=== PATIENT | female | born 1940 | race Caucasian/White ===

== ENCOUNTER 2017-04-24 07:58 | Outpatient (CLI) | payer MEDICARE, BC, OTHER | END 2017-04-24 07:59 | disposition home or self-care (01) | LOC: BICMAMMO 07:58 | PROVIDERS: ATTEND Internal Medicine | DX: Z12.31 Encounter for screening mammogram for malignant neoplasm of breast (principal) | CPT/HCPCS: 77063; G0202; 77067 ==

== ENCOUNTER 2018-04-30 08:43 | Outpatient (CLI) | payer MEDICARE, BC, OTHER ==
--- NOTE | 2018-04-30 11:41 | BD ---
BONE DENSITOMETRY USING DEXA: HISTORY: Postmenopausal screening for osteoporosis. LUMBAR SPINE BMD (g/cm2) T-SCORE Z-SCORE L1 1.179 1.7 3.9 L2 1.388 3.3 5.7 L3 1.304 2.0 4.6 L4 1.273 1.9 4.6 TOTAL 1.286 2.2 4.7 NECK 0.664 -1.7 0.5 TOTAL 0.951 0.1 1.9 The 10-year fracture risk for a major osteoporotic fracture is 12% and for a hip fracture 2.6%. IMPRESSION: Osteopenia. POS: [facility]
== END 2018-04-30 08:44 | disposition home or self-care (01) ==
LOC: BICMAMMO 08:43
PROVIDERS: ATTEND Internal Medicine
DX: Z12.31 Encounter for screening mammogram for malignant neoplasm of breast (principal); M85.89 Other specified disorders of bone density and structure, multiple sites; R92.1 Mammographic calcification found on diagnostic imaging of breast; Z80.3 Family history of malignant neoplasm of breast
CPT/HCPCS: 77063; 77067; 77080

== ENCOUNTER 2018-07-16 08:25 | Outpatient (CLI) | payer MEDICARE, BC, OTHER ==
[2018-07-16] MEDS ORDERED: Iopamidol 370 76% 100 ML VIAL ONE (09:00)
[2018-07-16 09:26] LABS: Estimated GFR-MDRD - POC Greater than 90
--- NOTE | 2018-07-16 10:45 | CT ---
CT BRAIN WITH AND WITHOUT IV CONTRAST: Date: 07/16/18 HISTORY: 77-year-old female with headache, stroke, and aneurysm. Right arm weakness. FINDINGS: There are postop changes of left-sided craniotomy. There is encephalomalacia in the left MCA territor y, likely due to old insult, with mild ex vacuo dilatation of the left lateral ventricle. Postop ward ges of aneurysm repair are seen in the left middle cranial fossa. No evidence of acute infarct, hemor rhage, midline shift, or abnormal extra-axial fluid collections are seen. No mass is identified. No a bnormal postcontrast enhancement is noted. The basilar cisterns are patent. No acute osseous abnormal ities are seen. The visualized paranasal sinuses and mastoid air cells are well aerated. IMPRESSION: No CT evidence of acute intracranial process or mass. POS: [facility]
== END 2018-07-16 08:26 | disposition home or self-care (01) ==
LOC: SCSCT 08:25
PROVIDERS: ATTEND Internal Medicine
DX: R51 Headache (principal); R41.0 Disorientation, unspecified; Z86.73 Personal history of transient ischemic attack (TIA), and cerebral infarction without residual deficits; Z86.79 Personal history of other diseases of the circulatory system
CPT/HCPCS: 70470; 82565; Q9967

== ENCOUNTER 2018-07-27 11:03 | Outpatient (CLI) | payer MEDICARE, BC, OTHER ==
--- NOTE | 2018-07-27 13:35 | RAD ---
LUMBAR SPINE THREE VIEWS: HISTORY: Intervertebral disk degeneration. Low back pain. Symptoms x2 weeks. COMPARISON: None. FINDINGS: There is levorotatory scoliosis of the lumbar spine. Five lumbar type vertebral bodies. Lumbar spin e vertebral body height is maintained. No fracture. Multilevel degenerative disk disease with sever e loss of disk space height and osteophyte formation. In the lateral weightbearing position, there i s anterolisthesis (7.6 mm) of L5 upon S1. IMPRESSION: Chronic degenerative change of the lumbar spine is suspected. POS: [facility]
== END 2018-07-27 11:04 | disposition home or self-care (01) ==
LOC: BICRAD 11:03
PROVIDERS: ATTEND Internal Medicine
DX: M54.5 Low back pain (principal); M51.36 Other intervertebral disc degeneration, lumbar region
CPT/HCPCS: 36415; 72100; 83880

== ENCOUNTER 2018-08-27 15:19 | Outpatient (CLI) | payer MEDICARE, BC, OTHER ==
--- NOTE | 2018-08-27 16:34 | RAD ---
SACROILIAC JOINTS 3 VIEWS: Date: 08/27/18 INDICATION: Low back pain. COMPARISON: None. FINDINGS: There is mild degenerative change of both SI joints. Sacral ala are incontinuity. No acute fracture i s evident. IMPRESSION: Mild degenerative changes of both SI joints. POS: [facility]
--- NOTE | 2018-08-27 16:52 | RAD ---
LUMBAR SPINE THREE VIEWS: History: Back pain. Comparison: None. FINDINGS: Moderate to severe degenerative changes of the lumbar spine noted. There is loss of disc space at all levels. Vertebral body height is preserved. There is a scoliotic curvature with convexity to the lef t mid-lumbar spine, measured at 25 degrees. There is mild lateral compression of the L3 vertebra due to this scoliotic curvature. Prominent osteophytes are seen from all lumbar vertebrae. There is a mil d anterolisthesis of L5-S1. Posterior alignment is otherwise normally maintained on the lateral view. Facet hypertrophy is noted. IMPRESSION: Moderately severe degenerative hypertrophic changes of the lumbar spine. There is a scoliotic curvatu re to the left. Mild anterolisthesis of L5-S1. POS: [facility]
== END 2018-08-27 15:20 | disposition home or self-care (01) ==
LOC: BICRAD 15:19
PROVIDERS: ATTEND Internal Medicine
DX: M54.5 Low back pain (principal); M25.551 Pain in right hip; M25.552 Pain in left hip; M47.816 Spondylosis without myelopathy or radiculopathy, lumbar region; M43.17 Spondylolisthesis, lumbosacral region; M41.9 Scoliosis, unspecified; M53.3 Sacrococcygeal disorders, not elsewhere classified
CPT/HCPCS: 36415; 72100; 72202; 82565

== ENCOUNTER 2018-08-31 12:54 | Outpatient (CLI) | payer MEDICARE, BC, OTHER ==
--- NOTE | 2018-08-31 13:54 | CT ---
CT OF THE ABDOMEN AND PELVIS WITH IV CONTRAST INDICATION: Low back pain COMPARISON: CT the abdomen and pelvis dated February 03, [address] of the abdomen dated 2010 FINDINGS: ABDOMEN: Lung bases: Clear Liver: The small hypodense lesion involving the medial left hepatic lobe has intervally grown. This l esion now measures 11 mm and demonstrates an area of peripheral nodular enhancement suspicious for a hemangioma. Gallbladder: Not visualized, presumed to be surgically absent. Pancreas: Normal. Adrenal glands: Mild hypertrophy of the left adrenal gland has been stable since 2010. Right adrenal glands normal appearing. Spleen: Normal. Kidneys: Small renal hypodensities bilaterally persists. There is a 1.1 cm hypodense involving superi or pole right kidney that has intervally grown. This does not have postcontrast Hounsfield characteristics of a simple cyst. Retroperitoneum of the upper abdomen: No lymphadenopathy or free fluid is identified. Pelvis: Small and large bowel: There are scattered colonic diverticula without evidence of active diverticuli tis. The small bowel is of normal appearance. The appendix is not definitely demonstrated. Reproductive structures: The uterus is not visualized and presumably surgically absent. The adnexa ar e not visualized and presumed to be surgically absent. Free fluid in pelvis: No free fluid is evident. Lymphadenopathy pelvis: No lymphadenopathy is evident. Vascular structures: There are moderate to severe calcifications involving the abdominal pelvic vascu lature. Osseous structures: There is worsening degenerative levoscoliosis of the lumbar spine. No acute fract ure or subluxation is evident. There is diffuse osteopenia. There is scattered degenerative and osteoarthritic changes. IMPRESSION: 1. Worsening degenerative levoscoliosis of the lumbar spine with vacuum disc phenomenon at L4-5 and L 5-S1. 2. Renal hypodensities, difficult to characterize due to their size. The largest measures 1.1 cm with in the superior pole right kidney and cannot be further characterize on the current examination. This lesion may reflect a slightly proteinaceous cyst or complex cystic lesion of the right kidney. F ollow-up renal ultrasound is recommended. 3. Enlarging hypodensity in the medial left hepatic lobe with some suggestion of peripheral nodular d iscontinuous enhancement. This lesion has been slowly growing since 2010 and is suspicious for small hemangioma. 4. Colonic diverticulosis 5. Nonvisualization appendix and gallbladder. Presumably surgically absent. 6. Hysterectomy and bilateral oophorectomy
[2018-08-31] MEDS ORDERED: Iopamidol 370 76% 100 ML VIAL ONE (15:02)
== END 2018-08-31 12:55 | disposition home or self-care (01) ==
LOC: CT 12:54
PROVIDERS: ATTEND Internal Medicine
DX: M51.36 Other intervertebral disc degeneration, lumbar region (principal); M41.9 Scoliosis, unspecified; K57.30 Diverticulosis of large intestine without perforation or abscess without bleeding; Z90.710 Acquired absence of both cervix and uterus; Z90.722 Acquired absence of ovaries, bilateral
CPT/HCPCS: 74177; Q9967

== ENCOUNTER 2018-09-09 13:55 | Outpatient (CLI) | payer MEDICARE, BC, OTHER ==
--- NOTE | 2018-09-09 15:14 | ULT ---
Exam: Bilateral renal ultrasound complete: HISTORY: Follow-up CT right kidney COMPARISON: 08/31/2018 FINDINGS: Right kidney: 11.3 x 5.2 x 4.5 cm Left kidney: 10.6 x 5.5 x 6.2 cm No renal hydronephrosis. No evidence for abnormal perinephric process. 1.0 x 1.2 cm thinly septated cyst in the right kidney corresponding to the CT finding. Unremarkable appearing bladder. Multiple bilateral echogenic foci are noted in both kidneys, nonspecific, I tend to think these are n ot renal calculi given the fact that there were no significant renal calculi seen on the prior CT. IMPRESSION: Small thinly septated right renal cyst. No hydronephrosis. Nonspecific multiple small bilateral renal echogenic foci.
== END 2018-09-09 13:56 | disposition home or self-care (01) ==
LOC: SCSULT 13:55
PROVIDERS: ATTEND Internal Medicine
DX: N28.1 Cyst of kidney, acquired (principal)
CPT/HCPCS: 76770

== ENCOUNTER 2018-10-07 06:56 | Day surgery (SDC) | payer MEDICARE, BC, OTHER ==
[2018-10-06 10:49] VITALS: BMI 31.1
[2018-10-07] MEDS ORDERED: Lorazepam 1 MG TAB ONE (07:53)
[2018-10-07 07:58] VITALS: BP 185/88; TEMP 98
--- NOTE | 2018-10-07 09:11 | RAD ---
Exam: Lumbar myelogram HISTORY: lumbar spinal stenosis Exposure 0.5 minutes, 335.2 mcg/sq m FINDINGS: Initial two-view sole painter lumbar spine radiograph demonstrates a left worse scoliotic curvatur e of the lumbar spine. 5 lumbar type bodies. Multilevel degenerative disc disease with significant loss of disc space height, osteophyte formation. Vacuum disc phenomenon at L4-L5 Atherosclerosis of the aorta is noted Successful lumbar puncture. A total of 10 cc of Isovue-M 200 contrast was administered. Contrast was administered at the L3-L4 level TECHNIQUE: Consent obtained to perform a lumbar puncture for lumbar myelogram. Patient's back was katherine luated. The L3-L4 level was deemed appropriate. Skin was prepped and draped sterile fashion. 1% lidocaine, buffered with sodium bicarbonate was used for local anesthesia. Under FLUOROSCOPIC guidanc e, 22-gauge spinal needle was advanced into the CSF space. There is prompt flow of CSF to the hub of the needle. Via a short tubing catheter, a total of 10 cc of Isovue-M 200 contrast was administere d. Patient tolerated the procedure well. No immediate IMPRESSION: Successful lumbar.
--- NOTE | 2018-10-07 09:43 | CT ---
Exam: POST MYELOGRAM CT LUMBAR SPINE: HISTORY: Lumbar stenosis. COMPARISON: None. FINDINGS: Visualized solid organs are grossly unremarkable. There is some nodularity with the left adrenal glan d. Attenuation coefficient is negative for Hounsfield units suggesting benign adenoma. Nonobstructing 2 mm calcification in the right renal pelvis. Bilaterally no obstructive uropathy. Ath erosclerosis of a nonaneurysmal aorta. Symmetric attenuation of the psoas muscles. Indeterminate hypodensity in the left hepatic lobe measuring approximately 1 cm. Nonspecific calcification in the pancreas. There are 5 lumbar type vertebral bodies. Vertebral body height is maintained. No fracture. Leftward scoliosis of the lumbar spine, apex at the L3-L4 level. Vacuum disc phenomenon at T11-T12, T12-L1, L1-L2, and L4-L5. 5.3 mm of anterolisthesis of L5 upon S1. Bilateral facet hypertrophy is noted at L4-L5 and L5-S1. Conus medullaris terminates at the upper aspect of L1. T11-T12: Generalized disc bulge with mild central canal stenosis. Right neural foramen is patent. Mo derate left foraminal narrowing. T12-L1: Vacuum disc phenomenon. Generalized disc bulge without significant central canal stenosis or neural foraminal narrowing. L1-L2: Vacuum disc phenomenon. Severe loss of disc space height. Narrowing of the left subarticular z one secondary to disc material. Mass effect without obscuration of the traversing left L2 and possibly L3 nerve root. Overall mild stenosis of the thecal sac. Right neural foramen is patent. Mode rate to severe left foraminal narrowing. L2-L3: Vacuum disc phenomenon with severe loss of disc space height. Mild central canal stenosis. Mod erate to severe right and left neural foraminal narrowing. L3-L4: Severe loss of disc space height. No high-grade central canal stenosis. Moderate right and mil d left foraminal narrowing. L4-L5: Vacuum disc phenomenon. Broad-based disc bulge, ligament flavum thickening and facet hypertrop hy cause severe central canal stenosis. There is a posterior disc protrusion, measuring 7 mm in AP dimension as demonstrated on the sagittal reformatted images. Moderate right and moderate to severe l eft neural foraminal narrowing. L5-S1: Generalized disc bulge with mild central canal stenosis. Moderate bilateral neural foraminal n arrowing. There is left greater than right facet hypertrophy. IMPRESSION: 1. Multilevel degenerative changes of lumbar spine as described above. 2. Severe central canal stenosis at L4-L5 due to central disc protrusion. 3. Varying degrees of neural foraminal narrowing as described above. Transcribed Date/Time: 10/07/2018 10:07 AM
[2018-10-07] MEDS ORDERED: Iopamidol-M 200 41% 20 ML VIAL ONE (11:37)
== END 2018-10-07 10:20 | disposition home or self-care (01) ==
LOC: RAD 06:56
PROVIDERS: ATTEND Neurological Surgery
PROC: B01B1ZZ Fluoroscopy of Spinal Cord using Low Osmolar Contrast (ICD-10-PCS; principal; 2018-10-07)
DX: M51.26 Other intervertebral disc displacement, lumbar region (principal); M48.061 Spinal stenosis, lumbar region without neurogenic claudication; M51.36 Other intervertebral disc degeneration, lumbar region; I70.0 Atherosclerosis of aorta; I10 Essential (primary) hypertension; M19.90 Unspecified osteoarthritis, unspecified site; Z86.73 Personal history of transient ischemic attack (TIA), and cerebral infarction without residual deficits; Z98.890 Other specified postprocedural states; Z91.041 Radiographic dye allergy status; Z79.52 Long term (current) use of systemic steroids; Z79.82 Long term (current) use of aspirin; Z79.899 Other long term (current) drug therapy
CPT/HCPCS: 62304; 72132

== ENCOUNTER 2019-02-15 08:54 | Observation (INO) | payer MEDICARE, BC, OTHER ==
[2019-02-12 14:19] VITALS: BMI 31.1
[2019-02-15 09:51] LABS: Hemoglobin 14.4 g/dL (12.0-16.0); Mean Corpuscular HGB CONC 34.3 g/dL (32.0-36.0); Mean Corpuscular Hemoglobin 33.3 pg (27.0-31.0); Mean Platelet Volume 8.1 fL (7.4-10.4); Platelet Count 283 thou/uL (130-400); RBC Distribution Width 12.2 % (11.5-14.5); Red Blood Cell (RBC) Count 4.32 mill/uL (4.20-5.40); White Blood Cell (WBC) Count 9.4 thou/uL (4.8-10.8)
[2019-02-15 10:11] LABS: Anion Gap 15 mmol/L (10-20); BUN (Urea Nitrogen) 20 mg/dL (9.8-20.1); Calc. Creatinine Clearance 78 mL/min (70-130); Calcium 9.8 mg/dL (7.8-10.44); Carbon Dioxide 24 mmol/L (23-31); Chloride 103 mmol/L (98-107); Estimated GFR-MDRD 80; Glucose 113 mg/dL (83-110); Potassium 3.8 mmol/L (3.5-5.1); Sodium 138 mmol/L (136-145)
[2019-02-15] MEDS ORDERED: Scopolamine 1.5 mg/72 hour Patch ONE (10:38)
[2019-02-15] MEDS ORDERED: Fentanyl 100 MCG/2 ML VIAL ONE ×2 (11:42→13:47)
[2019-02-15] MEDS ORDERED: Ondansetron PF 4 MG/2 ML Vial ONE (12:55)
[2019-02-15] MEDS ORDERED: Glycopyrrolate 0.2 MG/ML 5 ML SYRINGE ONE (12:55)
[2019-02-15] MEDS ORDERED: Ketorolac Tromethamine 30 MG/ML VIAL ONE (12:55)
[2019-02-15] MEDS ORDERED: Esmolol 100 MG/10 ML VIAL ONE (12:55)
[2019-02-15] MEDS ORDERED: PROPOFOL 200 MG/20 ML VIAL ONE (12:55)
[2019-02-15] MEDS ORDERED: Rocuronium Bromide 10 MG/ML (10ML VIAL) ONE (12:55)
[2019-02-15] MEDS ORDERED: PHENYLEPHRINE-NS 100 MCG/ML 10 ML SYRINGE ONE (12:55)
[2019-02-15] MEDS ORDERED: Dexamethasone 20 MG/5 ML VIAL ONE (12:55)
[2019-02-15] MEDS ORDERED: Promethazine HCl 25 MG/ML VIAL SLOW IVP PRN (13:44)
[2019-02-15] MEDS ORDERED: Ondansetron HCl/PF 4 MG/2 ML Vial IVP PRN (13:44)
[2019-02-15] MEDS ORDERED: Promethazine HCl 25 MG/ML VIAL IM PRN ×2 (13:44→14:31)
[2019-02-15] MEDS ORDERED: Acetaminophen/Codeine 30-300mg Tablet PO PRN ×2 (14:31)
[2019-02-15] MEDS ORDERED: traMADol HCl 50 MG TAB PO PRN ×3 (14:31→16:25)
[2019-02-15] MEDS ORDERED: Acetaminophen 650 MG Suppository PR PRN (14:31)
[2019-02-15] MEDS ORDERED: Milk Of Magnesia 30 ML UDCUP PO PRN (14:31)
[2019-02-15] MEDS ORDERED: Promethazine HCl 12.5 MG SUPP PR PRN (14:31)
[2019-02-15] MEDS ORDERED: diphenhydrAMINE 50 MG/ML VIAL IVP PRN (14:31)
[2019-02-15] MEDS ORDERED: Promethazine 25 MG TAB PO PRN (14:31)
[2019-02-15] MEDS ORDERED: diphenhydrAMINE 25 MG CAP PO PRN (14:31)
[2019-02-15] MEDS ORDERED: Morphine 4 MG/ML VIAL SLOW IVP PRN (14:31)
[2019-02-15] MEDS ORDERED: Mag-Al 1200 mg/1200 mg/30 ML UDCUP PO PRN (14:31)
[2019-02-15] MEDS ORDERED: tiZANidine HCl 4 MG TAB PO PRN (14:31)
[2019-02-15] MEDS ORDERED: Ondansetron PF 4 MG/2 ML Vial IVP PRN (14:33)
[2019-02-15] MEDS ORDERED: Morphine 2 MG/ML SYRINGE SLOW IVP PRN (15:30)
[2019-02-15] MEDS ORDERED: CEFAZOLIN 2 GM in Premix Bag 1 BAG IVPB SCH (18:00)
[2019-02-15] MEDS: Sodium Chloride 0.9% 1,000 ML IV SCH (18:01)
--- NOTE | 2019-02-15 19:08 | OP ---
DATE OF PROCEDURE: 02/15/2019 [employer]: Med Lancaster MD PROCEDURE PERFORMED: L4-L5 laminectomy. DESCRIPTION OF PROCEDURE: The patient was brought to the operating room and intubated. She was rolled in a prone position on gel-filled chest rolls. An incision was made exposing L4-L5 and level was confirmed by x-ray. We performed complete L5 and inferior L4 laminectomies and found the expected severe degenerative findings and degenerative scoliosis. A complete decompression at L4-L5 area was achieved. The wound was extensively irrigated. MAC hemostasis was secured. Vancomycin powder was applied, and the wound was closed in anatomic layers over drain. Job ID: [id number]
[2019-02-15] MEDS: Acetaminophen 325 MG TAB PO PRN (20:46)
[2019-02-15] MEDS: CEFAZOLIN 2 GM in Premix Bag 1 BAG IVPB SCH (20:46)
[2019-02-16] MEDS: CEFAZOLIN 2 GM in Premix Bag 1 BAG IVPB SCH (04:40)
[2019-02-16] MEDS: Sodium Chloride 0.9% 1,000 ML IV SCH ×2 (04:40→18:40)
--- NOTE | 2019-02-16 06:52 | PRG ---
DATE OF SERVICE: SUBJECTIVE: Patient is a 78-year-old female seen in our office for progressive neurogenic claudication and underwent L4-L5 laminectomy on 02/15/2019. She is postoperative day #1. Overnight, she reports her pain has been well-controlled with p.o. medication, she is tolerating a regular diet, and she is walking back and forth to the bathroom with assistance and with her walker. She is voiding appropriately. OBJECTIVE: On exam this morning, she is awake, alert, in no acute distress. She has free active range of motion of all extremities. Incision is clean, dry, and intact. PLAN: We will go ahead and get her CLEM drain out today since the output is trending down nicely and voided 70 mL out overnight. We will continue to mobilize with PT and I anticipate home tomorrow. Job ID: [id number] [facility]
[2019-02-16] MEDS: Docusate 100 MG CAP PO SCH (08:05)
--- NOTE | 2019-02-16 13:55 | CON ---
DATE OF CONSULTATION: 02/16/2019 CHIEF COMPLAINT: Management of medical comorbidities. HISTORY OF PRESENT ILLNESS: Ms. Diamond is a pleasant 78-year-old lady, who was seen at [facility] on February 16, 2019. She underwent lumbar laminectomy, L4-L5 yesterday. Hospitalist Service was consulted for management of medical comorbidities. The patient denies any chest pain or shortness of breath. She reports low back pain, but also reports that it is not worse than usual. She denies any fevers or chills. She has no other complaints. REVIEW OF SYSTEMS: All systems were reviewed and found to be negative except for the pertinent positives mentioned above. PAST MEDICAL HISTORY: Hypertension. PAST SURGICAL HISTORY: Cholecystectomy; hysterectomy; intracranial aneurysm, status post clipping; and left foot surgery. FAMILY HISTORY: The patient reports heart disease in her daughter. SOCIAL HISTORY: The patient denies tobacco use, alcohol use, or recreational drug use. ALLERGIES: IODINE AND IODINE-CONTAINING PRODUCTS. HOME MEDICATIONS: 1. Vitamin D3 2000 units every other day. 2. Aspirin 81 mg on Friday, Friday, and Friday. 3. Candesartan/hydrochlorothiazide 16/12.5 mg daily. 4. Diclofenac 75 mg at bedtime. 5. Diltiazem 120 mg at bedtime. 6. Docusate 100 mg daily. 7. Potassium chloride 20 mEq, Friday, Friday, and Friday. 8. Sun Chlorella every evening. 9. Tramadol p.r.n. 10. Vitamin E 400 units, Friday, Friday, and Friday. PHYSICAL EXAMINATION: GENERAL: On examination, Ms. Diamond is awake and alert, not in acute distress. VITAL SIGNS: Blood pressure is 130/79, pulse 78, respiratory rate 18, and oxygen saturation 94% on room air. She is afebrile. HEENT: Eyes; no scleral icterus, no conjunctival pallor. ENT; moist mucosal membranes. No oropharyngeal erythema or exudates. NECK: Supple, nontender. Trachea is midline. RESPIRATORY: Accessory muscles of breathing are not active. Chest wall movements are symmetric bilaterally. LUNGS: Clear to auscultation without wheeze, rhonchi, or crepitations. CARDIOVASCULAR: S1 and S2 are heard, regular. Peripheral pulses palpable. ABDOMEN: Soft, nontender. Bowel sounds are heard. NEUROLOGIC: Cranial nerves 2 through 12 are intact. MUSCULOSKELETAL: Power is 5/5 in all 4 extremities. SKIN: Incision site is clean. LYMPHATIC: No cervical lymphadenopathy. PSYCHIATRIC: Normal mood. Normal affect. The patient is oriented to person, place, and time. LABORATORY DATA: Ms. Diamond's labs and investigations were reviewed. Yesterday, she had an unremarkable CBC and unremarkable Chem-7. ASSESSMENT AND PLAN: Ms. Diamond is a pleasant 78-year-old lady, who was seen at [facility] on February 16, 2019 for management of medical comorbidities. Her problem list includes: 1. Hypertension: Ms. Diamond has already been started on Cardizem CD. I will resume her candesartan and hydrochlorothiazide as well. We will monitor vital signs and titrate antihypertensives as needed. 2. Lumbar spinal stenosis: Status post lumbar laminectomy, L4-L5 yesterday. 3. Pain management and deep venous thrombosis prophylaxis per Neurosurgery Service. LEVEL OF RISK: Low. LEVEL OF COMPLEXITY: Low. Job ID: [id number]
[2019-02-17] MEDS: Sodium Chloride 0.9% 1,000 ML IV SCH (03:54)
[2019-02-17] MEDS: Acetaminophen 325 MG TAB PO PRN (06:01)
[2019-02-17 07:42] VITALS: BP 98/55; TEMP 98
[2019-02-17] MEDS: Docusate 100 MG CAP PO SCH (08:07)
[2019-02-17] MEDS ORDERED: Potassium Chloride 20 MEQ TAB PO SCH ×2 (09:00)
[2019-02-17] MEDS ORDERED: Hydrochlorothiazide 25 MG TAB PO SCH (09:00)
[2019-02-17] MEDS ORDERED: Losartan 25 MG TAB PO SCH (09:00)
[2019-02-17] MEDS ORDERED: Vitamin E 400 UNITS CAP PO SCH ×2 (09:00)
[2019-02-17] MEDS ORDERED: Docusate 100 MG CAP PO SCH (09:00)
--- NOTE | 2019-02-17 14:59 | DIS ---
DATE OF ADMISSION: 02/15/2019 DATE OF DISCHARGE: 02/17/2019 HOSPITAL COURSE: The patient is a 78-year-old female, recently evaluated in our office for lumbar stenosis and progressive neurogenic claudication. She underwent L4-L5 laminectomy on 02/15/2019. Following the surgery, she was transitioned to the Med/Surg floor, where her pain has been well-controlled with p.o. medications, she is tolerating a regular diet, and she is voiding appropriately. She did have CLEM drain placed intraoperatively and this trended downward with regard to the output and was removed on postoperative day #1. She continued to mobilize appropriately with assistance of Physical Therapy. PHYSICAL EXAMINATION: GENERAL: On my exam this morning, she is awake, alert, in no acute distress. EXTREMITIES: She has free active range of motion of all extremities. Her incision is clean, dry, and intact. PLAN: We will plan to dismiss the patient to home. I have discussed home care precautions. She has been provided with scripts for Tylenol No. 3 and Zanaflex. We will follow up with the patient in 2 weeks, and we will arrange outpatient physical therapy at that time. Job ID: [id number]
--- NOTE | 2019-02-18 22:54 | EKG ---
Test Reason : PREOP Blood Pressure : / mmHG Vent. Rate : 077 BPM Atrial Rate : 077 BPM P-R Int : 166 ms QRS Dur : 106 ms QT Int : 426 ms P-R-T Axes : 078 -16 044 degrees QTc Int : 482 ms Sinus rhythm with occasional Premature ventricular complexes Inferior infarct (cited on or before 03-NOV-2011) Abnormal ECG When compared with ECG of 03-NOV-2011 09:13, Premature ventricular complexes are now Present Minimal criteria for Anterior infarct are no longer Present Confirmed by Silvino BROWN ([id number]) on 02/18/2019 10:53:47 PM Referred By: GALE Confirmed By:Silvino BROWN
== END 2019-02-17 11:25 | disposition home or self-care (01) ==
LOC: SDC 08:54 → SURG B 15:42
PROVIDERS: ADMIT Neurological Surgery; ATTEND Neurological Surgery
PROC: 01NB0ZZ Release Lumbar Nerve, Open Approach (ICD-10-PCS; principal; 2019-02-15)
DX: M48.062 Spinal stenosis, lumbar region with neurogenic claudication (principal); M41.56 Other secondary scoliosis, lumbar region; I10 Essential (primary) hypertension; Z79.82 Long term (current) use of aspirin; Z79.899 Other long term (current) drug therapy; Z91.041 Radiographic dye allergy status
CPT/HCPCS: 63047; 76000; 80048; 85027; 93005; 96365; 96366; 97116; 97139; G0378 ×3; 93010; J0131; J0690; J1100; J1885; J2405; J2704; J3010; J3370

== ENCOUNTER 2019-02-23 14:41 | Emergency (ER) | payer MEDICARE, BC, OTHER ==
--- NOTE | 2019-02-23 15:30 | ULT ---
VENOUS DOPPLER ULTRASOUND OF THE RIGHT LOWER EXTREMITY: HISTORY: Right lower extremity pain and swelling. Recent back surgery. TECHNIQUE: Rocha scale ultrasound with color flow and spectral Doppler imaging of the deep venous system of the r ight lower extremity was performed. FINDINGS: There is good flow, compression, and augmentation noted in the right common femoral, femoral, deep fe moral, popliteal, posterior tibial veins, and the greater saphenofemoral junction. There is an avascular fluid collection in the right popliteal fossa consistent with Reddy's cyst rupert uring 7.5 x 3.6 x 1.9 cm. IMPRESSION: 1. No evidence of deep vein thrombosis in the right lower extremity. 2. Right Reddy's cyst. POS: [facility]
[2019-02-23 15:35] LABS: #Eosinphils 0.1 thou/uL (0.0-0.7); #Lymphocytes 2.7 thou/uL (1.20-3.40); #Monocytes 0.9 thou/uL (0.11-0.59); #Neutrophils 5.3 thou/uL (1.40-6.50); %Basophils 0.3 % (0.0-1.0); %Eosinophils 1.1 % (0.0-10.0); %Lymphocytes 29.6 % (21.0-51.0); %Monocytes 10.2 % (0.0-10.0); %Neutrophils 58.8 % (42.0-75.0); Hemoglobin 13.1 g/dL (12.0-16.0); Mean Corpuscular HGB CONC 34.2 g/dL (32.0-36.0); Mean Corpuscular Hemoglobin 33.4 pg (27.0-31.0); Mean Corpuscular Volume 97.7 fL (78.0-98.0); Mean Platelet Volume 7.7 fL (7.4-10.4); Platelet Count 366 thou/uL (130-400); RBC Distribution Width 11.8 % (11.5-14.5); Red Blood Cell (RBC) Count 3.91 mill/uL (4.20-5.40)
[2019-02-23 15:57] LABS: ALT (SGPT) 8 U/L (8-55); AST (SGOT) 10 U/L (5-34); Alkaline Phosphatase 116 U/L (40-110); Anion Gap 13 mmol/L (10-20); BUN (Urea Nitrogen) 13 mg/dL (9.8-20.1); Bilirubin, Total 0.3 mg/dL (0.2-1.2); Calc. Creatinine Clearance 0 mL/min (70-130); Calcium 9.8 mg/dL (7.8-10.44); Carbon Dioxide 29 mmol/L (23-31); Chloride 101 mmol/L (98-107); Estimated GFR-MDRD 79; Globulin 3.5 g/dL (2.4-3.5); Glucose 110 mg/dL (83-110); Potassium 3.7 mmol/L (3.5-5.1); Protein, Total 7.5 g/dL (6.0-8.3); Sodium 139 mmol/L (136-145)
== END 2019-02-23 16:32 | disposition home or self-care (01) ==
LOC: ERS 14:41
DX: M79.661 Pain in right lower leg (principal); I10 Essential (primary) hypertension
CPT/HCPCS: 36415; 80053; 85025

== ENCOUNTER 2021-05-14 14:44 | Inpatient (IN) | payer MEDICARE, BC, OTHER ==
[~2021-05-14 14:44] MED LIST: Iopamidol-370 76% 500 ML 1 ML ONE
[2021-05-14 15:35] LABS: #Lymphocytes 0.3 thou/uL (1.20-3.40); #Monocytes 0.4 thou/uL (0.11-0.59); #Neutrophils 8.2 thou/uL (1.40-6.50); %Eosinophils 0.3 % (0.0-10.0); %Monocytes 4.5 % (0.0-10.0); %Neutrophils 92.1 % (42.0-75.0); Hemoglobin 15.5 g/dL (12.0-16.0); Mean Corpuscular HGB CONC 33.6 g/dL (32.0-36.0); Mean Corpuscular Volume 95.2 fL (78.0-98.0); Mean Platelet Volume 7.8 fL (7.4-10.4); Platelet Count 284 thou/uL (130-400); RBC Distribution Width 12.6 % (11.5-14.5); Red Blood Cell (RBC) Count 4.86 mill/uL (4.20-5.40); White Blood Cell (WBC) Count 8.9 thou/uL (4.8-10.8)
[2021-05-14 15:51] LABS: ALT (SGPT) 67 U/L (8-55); AST (SGOT) 74 U/L (5-34); Albumin 3.5 g/dL (3.4-4.8); Alkaline Phosphatase 111 U/L (40-110); Anion Gap 15 mmol/L (10-20); BUN (Urea Nitrogen) 12 mg/dL (9.8-20.1); Bilirubin, Total 0.6 mg/dL (0.2-1.2); Calc. Creatinine Clearance 0 mL/min (70-130); Carbon Dioxide 29 mmol/L (23-31); Chloride 99 mmol/L (98-107); Globulin 3.8 g/dL (2.4-3.5); Glucose 154 mg/dL (83-110); Protein, Total 7.3 g/dL (5.8-8.1); Sodium 140 mmol/L (136-145)
[2021-05-14 16:10] LABS: Potassium 2.9 mmol/L (3.5-5.1)
[2021-05-14] MEDS ORDERED: cefTRIAXone\\ROCEPHIN 1 GM VIAL ONE (17:30)
[2021-05-14] MEDS ORDERED: Magnesium 2 GM/50 ML BAG (IN WATER) ONE (17:30)
[2021-05-14] MEDS ORDERED: Potassium Chloride 20 MEQ TAB ONE (17:30)
[2021-05-14] MEDS ORDERED: diphenhydrAMINE 12.5 MG/5 ML UDCUP ONE (18:22)
[2021-05-14] MEDS ORDERED: methylPREDNISolone Sod Succ/PF 125 MG/2 ML VIAL ONE (18:22)
[2021-05-14] MEDS ORDERED: diphenhydrAMINE 50 MG/ML VIAL ONE (18:23)
[2021-05-14 18:35] LABS: Lactic Acid 1.3 mmol/L (0.5-2.2)
[2021-05-14] MEDS ORDERED: Azithromycin 500 MG VIAL ONE (18:55)
[2021-05-15] MEDS ORDERED: Ondansetron PF 4 MG/2 ML Vial IVP PRN (00:45)
[2021-05-15] MEDS ORDERED: Acetaminophen 325 MG TAB PO PRN (00:45)
[2021-05-15] MEDS ORDERED: Ondansetron ODT 4 MG TAB SL PRN (00:45)
[2021-05-15] MEDS ORDERED: Acetaminophen 325 MG TAB ONE (01:07)
[2021-05-15 09:33] LABS: ALT (SGPT) 73 U/L (8-55); AST (SGOT) 68 U/L (5-34); Albumin 3.4 g/dL (3.4-4.8); Alkaline Phosphatase 106 U/L (40-110); Anion Gap 17 mmol/L (10-20); BUN (Urea Nitrogen) 22 mg/dL (9.8-20.1); Bilirubin, Total 0.6 mg/dL (0.2-1.2); Calc. Creatinine Clearance 0 mL/min (70-130); Calcium 9.2 mg/dL (7.8-10.44); Carbon Dioxide 29 mmol/L (23-31); Chloride 101 mmol/L (98-107); Globulin 3.3 g/dL (2.4-3.5); Glucose 124 mg/dL (83-110); Protein, Total 6.7 g/dL (5.8-8.1); Sodium 143 mmol/L (136-145)
[2021-05-15] MEDS ORDERED: Dexamethasone 10 MG in Sodium Chloride 0.9% 50 ML IVPB SCH (09:57)
[2021-05-15] MEDS ORDERED: Cholecalciferol 1,000 UNITS (25 MCG) TAB PO SCH ×2 (09:57→10:15)
[2021-05-15] MEDS ORDERED: Ascorbic Acid 500 mg Chewable Tablet PO SCH ×2 (09:57→10:15)
[2021-05-15] MEDS ORDERED: Thiamine 100 MG TAB PO SCH (10:00)
[2021-05-15] MEDS ORDERED: Enoxaparin Sodium 40 MG/0.4 ML SYRINGE SC SCH (10:00)
[2021-05-15] MEDS ORDERED: Dexamethasone 10 MG/ML VIAL SLOW IVP SCH (10:15)
[2021-05-15] MEDS ORDERED: Mometasone 200 MCG/Formoterol 5 MCG 120 PUFF INHALER INH SCH (10:30)
[2021-05-15 11:54] VITALS: BMI 29.2
[2021-05-15] MEDS: Dexamethasone 10 MG/ML VIAL SLOW IVP SCH (21:15)
[2021-05-15] MEDS: Mometasone 200 MCG/Formoterol 5 MCG 120 PUFF INHALER INH SCH (21:17)
[2021-05-15] MEDS ORDERED: Acetaminophen 325 MG TAB PO SCH (21:45)
[2021-05-16] MEDS: Mometasone 200 MCG/Formoterol 5 MCG 120 PUFF INHALER INH SCH ×2 (06:16→18:21)
[2021-05-16] MEDS: Acetaminophen 325 MG TAB PO PRN ×2 (08:20→15:51)
[2021-05-16] MEDS: Hydrochlorothiazide 25 MG TAB PO SCH (08:21)
[2021-05-16] MEDS: Losartan 25 MG TAB PO SCH (08:21)
[2021-05-16] MEDS: Thiamine 100 MG TAB PO SCH (08:21)
[2021-05-16] MEDS: Ascorbic Acid 500 mg Chewable Tablet PO SCH (08:21)
[2021-05-16] MEDS: Enoxaparin Sodium 40 MG/0.4 ML SYRINGE SC SCH (08:22)
[2021-05-16] MEDS: Gabapentin 100 MG CAP PO SCH ×3 (08:22→21:19)
[2021-05-16] MEDS: Cholecalciferol 1,000 UNITS (25 MCG) TAB PO SCH (08:22)
[2021-05-16] MEDS: Dexamethasone 10 MG/ML VIAL SLOW IVP SCH ×2 (08:22→21:18)
[2021-05-16] MEDS: BARICITINIB 2 MG TAB PO SCH (12:38)
[2021-05-17] MEDS: Mometasone 200 MCG/Formoterol 5 MCG 120 PUFF INHALER INH SCH ×2 (06:21→18:46)
[2021-05-17] MEDS: Enoxaparin Sodium 40 MG/0.4 ML SYRINGE SC SCH (09:36)
[2021-05-17] MEDS: Losartan 25 MG TAB PO SCH (09:36)
[2021-05-17] MEDS: Hydrochlorothiazide 25 MG TAB PO SCH (09:36)
[2021-05-17] MEDS: Thiamine 100 MG TAB PO SCH (09:36)
[2021-05-17] MEDS: Dexamethasone 10 MG/ML VIAL SLOW IVP SCH ×2 (09:36→20:06)
[2021-05-17] MEDS: Cholecalciferol 1,000 UNITS (25 MCG) TAB PO SCH (09:37)
[2021-05-17] MEDS: Gabapentin 100 MG CAP PO SCH ×3 (09:37→20:06)
[2021-05-17] MEDS: Acetaminophen 325 MG TAB PO PRN ×2 (09:39→15:54)
[2021-05-17] MEDS: Ascorbic Acid 500 mg Chewable Tablet PO SCH (10:55)
[2021-05-17] MEDS: BARICITINIB 2 MG TAB PO SCH (12:23)
[2021-05-18] MEDS: Acetaminophen 325 MG TAB PO PRN (04:24)
[2021-05-18 05:40] LABS: ALT (SGPT) 84 U/L (8-55); AST (SGOT) 52 U/L (5-34); Alkaline Phosphatase 84 U/L (40-110); Bilirubin, Direct 0.3 mg/dL (0.1-0.3); Bilirubin, Total 0.7 mg/dL (0.2-1.2); Protein, Total 6.2 g/dL (5.8-8.1)
[2021-05-18] MEDS: Mometasone 200 MCG/Formoterol 5 MCG 120 PUFF INHALER INH SCH ×2 (06:17→18:43)
[2021-05-18] MEDS: Enoxaparin Sodium 40 MG/0.4 ML SYRINGE SC SCH (09:55)
[2021-05-18] MEDS: Gabapentin 100 MG CAP PO SCH ×3 (09:56→22:27)
[2021-05-18] MEDS: Losartan 25 MG TAB PO SCH (09:56)
[2021-05-18] MEDS: Ascorbic Acid 500 mg Chewable Tablet PO SCH (09:56)
[2021-05-18] MEDS: Cholecalciferol 1,000 UNITS (25 MCG) TAB PO SCH (09:56)
[2021-05-18] MEDS: Dexamethasone 10 MG/ML VIAL SLOW IVP SCH ×2 (09:57→22:28)
[2021-05-18] MEDS: Thiamine 100 MG TAB PO SCH (09:57)
[2021-05-18] MEDS: Hydrochlorothiazide 25 MG TAB PO SCH (09:58)
[2021-05-18] MEDS: BARICITINIB 2 MG TAB PO SCH (12:43)
[2021-05-19] MEDS: Mometasone 200 MCG/Formoterol 5 MCG 120 PUFF INHALER INH SCH ×2 (07:04→18:20)
[2021-05-19] MEDS: Ascorbic Acid 500 mg Chewable Tablet PO SCH (07:30)
[2021-05-19] MEDS: Enoxaparin Sodium 40 MG/0.4 ML SYRINGE SC SCH (07:31)
[2021-05-19] MEDS: Dexamethasone 10 MG/ML VIAL SLOW IVP SCH ×2 (07:31→20:36)
[2021-05-19] MEDS: Cholecalciferol 1,000 UNITS (25 MCG) TAB PO SCH (07:31)
[2021-05-19] MEDS: Hydrochlorothiazide 25 MG TAB PO SCH (07:32)
[2021-05-19] MEDS: Losartan 25 MG TAB PO SCH (07:32)
[2021-05-19] MEDS: Thiamine 100 MG TAB PO SCH (07:33)
[2021-05-19] MEDS: Gabapentin 100 MG CAP PO SCH ×3 (07:33→20:37)
[2021-05-19] MEDS: BARICITINIB 2 MG TAB PO SCH (11:45)
[2021-05-19] MEDS: Acetaminophen 325 MG TAB PO PRN (22:19)
[2021-05-20] MEDS: Mometasone 200 MCG/Formoterol 5 MCG 120 PUFF INHALER INH SCH ×2 (05:52→18:08)
[2021-05-20] MEDS: Ascorbic Acid 500 mg Chewable Tablet PO SCH (07:53)
[2021-05-20] MEDS: Cholecalciferol 1,000 UNITS (25 MCG) TAB PO SCH (07:53)
[2021-05-20] MEDS: Gabapentin 100 MG CAP PO SCH ×3 (07:54→21:24)
[2021-05-20] MEDS: Enoxaparin Sodium 40 MG/0.4 ML SYRINGE SC SCH (07:54)
[2021-05-20] MEDS: Dexamethasone 10 MG/ML VIAL SLOW IVP SCH ×2 (07:54→21:24)
[2021-05-20] MEDS: Hydrochlorothiazide 25 MG TAB PO SCH (07:54)
[2021-05-20] MEDS: Losartan 25 MG TAB PO SCH (07:55)
[2021-05-20] MEDS: Thiamine 100 MG TAB PO SCH (07:56)
[2021-05-20] MEDS: BARICITINIB 2 MG TAB PO SCH (11:41)
[2021-05-20 15:14] LABS: #Monocytes 0.5 thou/uL (0.11-0.59); #Neutrophils 6.5 thou/uL (1.40-6.50); %Basophils 0.2 % (0.0-1.0); %Eosinophils 0.1 % (0.0-10.0); %Lymphocytes 12.1 % (21.0-51.0); %Monocytes 5.9 % (0.0-10.0); %Neutrophils 81.7 % (42.0-75.0); Mean Corpuscular Hemoglobin 32.9 pg (27.0-31.0); Mean Corpuscular Volume 96.8 fL (78.0-98.0); Platelet Count 312 thou/uL (130-400); RBC Distribution Width 12.1 % (11.5-14.5); Red Blood Cell (RBC) Count 3.96 mill/uL (4.20-5.40); White Blood Cell (WBC) Count 7.9 thou/uL (4.8-10.8)
[2021-05-20 15:41] LABS: ALT (SGPT) 113 U/L (8-55); AST (SGOT) 59 U/L (5-34); Albumin 2.8 g/dL (3.4-4.8); Alkaline Phosphatase 72 U/L (40-110); Anion Gap 13 mmol/L (10-20); BUN (Urea Nitrogen) 34 mg/dL (9.8-20.1); Bilirubin, Total 0.9 mg/dL (0.2-1.2); Calc. Creatinine Clearance 82 mL/min (70-130); Calcium 8.8 mg/dL (7.8-10.44); Carbon Dioxide 26 mmol/L (23-31); Chloride 100 mmol/L (98-107); Globulin 2.8 g/dL (2.4-3.5); Glucose 156 mg/dL (83-110); Potassium 3.4 mmol/L (3.5-5.1); Protein, Total 5.6 g/dL (5.8-8.1); Sodium 136 mmol/L (136-145)
[2021-05-20] MEDS ORDERED: Potassium Chloride 20 MEQ TAB PO SCH (16:00)
[2021-05-21] MEDS: Mometasone 200 MCG/Formoterol 5 MCG 120 PUFF INHALER INH SCH ×2 (05:36→19:37)
[2021-05-21 07:12] LABS: ALT (SGPT) 105 U/L (8-55); AST (SGOT) 40 U/L (5-34); Albumin 2.7 g/dL (3.4-4.8); Alkaline Phosphatase 73 U/L (40-110); Bilirubin, Direct 0.4 mg/dL (0.1-0.3); Bilirubin, Total 0.9 mg/dL (0.2-1.2); Protein, Total 5.4 g/dL (5.8-8.1)
[2021-05-21 08:02] LABS: Anion Gap 13 mmol/L (10-20); BUN (Urea Nitrogen) 39 mg/dL (9.8-20.1); Calc. Creatinine Clearance 80 mL/min (70-130); Calcium 8.6 mg/dL (7.8-10.44); Carbon Dioxide 24 mmol/L (23-31); Chloride 100 mmol/L (98-107); Glucose 152 mg/dL (83-110); Potassium 4.1 mmol/L (3.5-5.1); Sodium 133 mmol/L (136-145)
[2021-05-21] MEDS: Cholecalciferol 1,000 UNITS (25 MCG) TAB PO SCH (08:27)
[2021-05-21] MEDS: Dexamethasone 10 MG/ML VIAL SLOW IVP SCH (08:27)
[2021-05-21] MEDS: Ascorbic Acid 500 mg Chewable Tablet PO SCH (08:27)
[2021-05-21] MEDS: Gabapentin 100 MG CAP PO SCH ×3 (08:27→21:45)
[2021-05-21] MEDS: Enoxaparin Sodium 40 MG/0.4 ML SYRINGE SC SCH (08:27)
[2021-05-21] MEDS: Losartan 25 MG TAB PO SCH (08:32)
[2021-05-21] MEDS: Hydrochlorothiazide 25 MG TAB PO SCH (08:32)
[2021-05-21] MEDS: Thiamine 100 MG TAB PO SCH (08:33)
[2021-05-21] MEDS: BARICITINIB 2 MG TAB PO SCH (12:06)
[2021-05-21] MEDS ORDERED: Albuterol Sulfate 1.25 MG/3 ML NEB NEB SCH (14:30)
[2021-05-21] MEDS ORDERED: Albuterol 200 PUFF (6.7GM INHALER) INH SCH (17:00)
[2021-05-21] MEDS: Albuterol 200 PUFF (6.7GM INHALER) INH SCH ×2 (19:36→23:16)
[2021-05-21] MEDS: Docusate 100 MG CAP PO SCH (21:44)
[2021-05-22] MEDS: Albuterol 200 PUFF (6.7GM INHALER) INH SCH ×6 (03:30→23:02)
[2021-05-22] MEDS: Acetaminophen 325 MG TAB PO PRN ×2 (03:37→23:45)
[2021-05-22 06:45] LABS: Anion Gap 13 mmol/L (10-20); BUN (Urea Nitrogen) 39 mg/dL (9.8-20.1); Calc. Creatinine Clearance 79 mL/min (70-130); Calcium 8.5 mg/dL (7.8-10.44); Carbon Dioxide 24 mmol/L (23-31); Chloride 102 mmol/L (98-107); Glucose 136 mg/dL (83-110); Sodium 135 mmol/L (136-145)
[2021-05-22] MEDS: Mometasone 200 MCG/Formoterol 5 MCG 120 PUFF INHALER INH SCH ×2 (07:00→19:21)
[2021-05-22] MEDS: Enoxaparin Sodium 40 MG/0.4 ML SYRINGE SC SCH (09:41)
[2021-05-22] MEDS: Dexamethasone 4 MG TAB PO SCH (09:41)
[2021-05-22] MEDS: Ascorbic Acid 500 mg Chewable Tablet PO SCH (09:41)
[2021-05-22] MEDS: Hydrochlorothiazide 25 MG TAB PO SCH (09:43)
[2021-05-22] MEDS: Cholecalciferol 1,000 UNITS (25 MCG) TAB PO SCH (09:44)
[2021-05-22] MEDS: Thiamine 100 MG TAB PO SCH (09:44)
[2021-05-22] MEDS: Gabapentin 100 MG CAP PO SCH ×3 (09:44→20:20)
[2021-05-22] MEDS: Losartan 25 MG TAB PO SCH (09:44)
[2021-05-22] MEDS: Polyethylene Glycol 3350 17 GM Packet PO SCH ×2 (09:45→13:41)
[2021-05-22] MEDS: Docusate 100 MG CAP PO SCH ×2 (09:45→20:20)
[2021-05-22] MEDS: BARICITINIB 2 MG TAB PO SCH (13:27)
[2021-05-23] MEDS: Albuterol 200 PUFF (6.7GM INHALER) INH SCH ×6 (03:16→22:42)
[2021-05-23] MEDS: Mometasone 200 MCG/Formoterol 5 MCG 120 PUFF INHALER INH SCH ×2 (05:51→19:12)
[2021-05-23] MEDS: Docusate 100 MG CAP PO SCH ×2 (11:16→20:58)
[2021-05-23] MEDS: Thiamine 100 MG TAB PO SCH (11:16)
[2021-05-23] MEDS: Losartan 25 MG TAB PO SCH (11:17)
[2021-05-23] MEDS: Hydrochlorothiazide 25 MG TAB PO SCH (11:17)
[2021-05-23] MEDS: Enoxaparin Sodium 40 MG/0.4 ML SYRINGE SC SCH (11:19)
[2021-05-23] MEDS: Gabapentin 100 MG CAP PO SCH ×3 (11:19→20:58)
[2021-05-23] MEDS: Dexamethasone 4 MG TAB PO SCH (11:20)
[2021-05-23] MEDS: BARICITINIB 2 MG TAB PO SCH (11:20)
[2021-05-23] MEDS: Polyethylene Glycol 3350 17 GM Packet PO SCH (11:22)
[2021-05-23] MEDS: Cholecalciferol 1,000 UNITS (25 MCG) TAB PO SCH (11:54)
[2021-05-23] MEDS: Ascorbic Acid 500 mg Chewable Tablet PO SCH (15:20)
[2021-05-23] MEDS ORDERED: Diltiazem HCl SR 60 mg Capsule PO SCH (21:00)
[2021-05-24] MEDS: Albuterol 200 PUFF (6.7GM INHALER) INH SCH ×6 (02:33→22:57)
[2021-05-24] MEDS: Mometasone 200 MCG/Formoterol 5 MCG 120 PUFF INHALER INH SCH ×2 (05:43→18:20)
[2021-05-24 07:08] LABS: ALT (SGPT) 77 U/L (8-55); AST (SGOT) 22 U/L (5-34); Alkaline Phosphatase 74 U/L (40-110); Bilirubin, Direct 0.4 mg/dL (0.1-0.3); Bilirubin, Total 0.9 mg/dL (0.2-1.2); Protein, Total 5.9 g/dL (5.8-8.1)
[2021-05-24] MEDS: Enoxaparin Sodium 40 MG/0.4 ML SYRINGE SC SCH (09:54)
[2021-05-24] MEDS: Hydrochlorothiazide 25 MG TAB PO SCH (09:54)
[2021-05-24] MEDS: Docusate 100 MG CAP PO SCH ×2 (09:57→20:17)
[2021-05-24] MEDS: Losartan 25 MG TAB PO SCH (09:57)
[2021-05-24] MEDS: Ascorbic Acid 500 mg Chewable Tablet PO SCH (09:58)
[2021-05-24] MEDS: Gabapentin 100 MG CAP PO SCH ×3 (09:58→20:17)
[2021-05-24] MEDS: Thiamine 100 MG TAB PO SCH (09:58)
[2021-05-24] MEDS: Cholecalciferol 1,000 UNITS (25 MCG) TAB PO SCH (09:59)
[2021-05-24] MEDS: Polyethylene Glycol 3350 17 GM Packet PO SCH (09:59)
[2021-05-24] MEDS: Dexamethasone 4 MG TAB PO SCH (09:59)
[2021-05-24] MEDS: BARICITINIB 2 MG TAB PO SCH (14:52)
[2021-05-24] MEDS: Acetaminophen 325 MG TAB PO PRN (23:47)
[2021-05-25] MEDS: Albuterol 200 PUFF (6.7GM INHALER) INH SCH ×6 (03:00→23:08)
[2021-05-25] MEDS: Mometasone 200 MCG/Formoterol 5 MCG 120 PUFF INHALER INH SCH ×2 (06:14→20:50)
[2021-05-25] MEDS: Dexamethasone 4 MG TAB PO SCH (09:56)
[2021-05-25] MEDS: Cholecalciferol 1,000 UNITS (25 MCG) TAB PO SCH (09:57)
[2021-05-25] MEDS: Gabapentin 100 MG CAP PO SCH ×3 (09:57→20:50)
[2021-05-25] MEDS: Enoxaparin Sodium 40 MG/0.4 ML SYRINGE SC SCH (09:57)
[2021-05-25] MEDS: Docusate 100 MG CAP PO SCH ×2 (09:57→20:50)
[2021-05-25] MEDS: Ascorbic Acid 500 mg Chewable Tablet PO SCH (09:57)
[2021-05-25] MEDS: Hydrochlorothiazide 25 MG TAB PO SCH (09:58)
[2021-05-25] MEDS: Polyethylene Glycol 3350 17 GM Packet PO SCH (09:59)
[2021-05-25] MEDS: Losartan 25 MG TAB PO SCH (09:59)
[2021-05-25] MEDS: Thiamine 100 MG TAB PO SCH (09:59)
[2021-05-25 13:25] LABS: Hemoglobin 12.9 g/dL (12.0-16.0); Mean Corpuscular HGB CONC 32.8 g/dL (32.0-36.0); Mean Corpuscular Hemoglobin 31.3 pg (27.0-31.0); Mean Corpuscular Volume 95.4 fL (78.0-98.0); Mean Platelet Volume 8.6 fL (7.4-10.4); Platelet Count 288 thou/uL (130-400); RBC Distribution Width 12.2 % (11.5-14.5); Red Blood Cell (RBC) Count 4.12 mill/uL (4.20-5.40); White Blood Cell (WBC) Count 17.9 thou/uL (4.8-10.8)
[2021-05-25 13:28] LABS: Anion Gap 11 mmol/L (10-20); BUN (Urea Nitrogen) 38 mg/dL (9.8-20.1); CRP (Inflammatory) Less than 0.50 mg/dL (= or < 0.5); Calc. Creatinine Clearance 80 mL/min (70-130); Calcium 8.5 mg/dL (7.8-10.44); Carbon Dioxide 24 mmol/L (23-31); Chloride 102 mmol/L (98-107); Glucose 108 mg/dL (83-110); Potassium 3.6 mmol/L (3.5-5.1); Sodium 133 mmol/L (136-145)
[2021-05-25] MEDS: BARICITINIB 2 MG TAB PO SCH (13:30)
[2021-05-25 13:44] LABS: Band 4 % (5-11); Lymphocytes 8 % (21-51); MDiff Complete? YES; Monocytes 10 % (0-10); Neutrophil 78 % (42-75); Platelet Morphology Comment Appears Adequate; RBC Morphology Normal
[2021-05-26] MEDS: Albuterol 200 PUFF (6.7GM INHALER) INH SCH ×6 (03:18→23:24)
[2021-05-26] MEDS: Acetaminophen 325 MG TAB PO PRN (03:26)
[2021-05-26] MEDS: Mometasone 200 MCG/Formoterol 5 MCG 120 PUFF INHALER INH SCH ×2 (05:38→18:29)
[2021-05-26] MEDS: Enoxaparin Sodium 40 MG/0.4 ML SYRINGE SC SCH (09:51)
[2021-05-26] MEDS: Hydrochlorothiazide 25 MG TAB PO SCH (09:52)
[2021-05-26] MEDS: Docusate 100 MG CAP PO SCH ×2 (09:52→20:56)
[2021-05-26] MEDS: Gabapentin 100 MG CAP PO SCH ×3 (09:53→20:56)
[2021-05-26] MEDS: Cholecalciferol 1,000 UNITS (25 MCG) TAB PO SCH (09:54)
[2021-05-26] MEDS: Thiamine 100 MG TAB PO SCH (09:55)
[2021-05-26] MEDS: Losartan 25 MG TAB PO SCH (09:55)
[2021-05-26] MEDS: Dexamethasone 4 MG TAB PO SCH (09:56)
[2021-05-26] MEDS: Ascorbic Acid 500 mg Chewable Tablet PO SCH (09:56)
[2021-05-26] MEDS: Polyethylene Glycol 3350 17 GM Packet PO SCH (09:57)
[2021-05-26] MEDS: BARICITINIB 2 MG TAB PO SCH (13:51)
[2021-05-27] MEDS: Albuterol 200 PUFF (6.7GM INHALER) INH SCH ×6 (02:52→22:18)
[2021-05-27] MEDS: Mometasone 200 MCG/Formoterol 5 MCG 120 PUFF INHALER INH SCH ×2 (05:54→19:48)
[2021-05-27 08:27] LABS: ALT (SGPT) 58 U/L (8-55); AST (SGOT) 18 U/L (5-34); Albumin 2.7 g/dL (3.4-4.8); Alkaline Phosphatase 62 U/L (40-110); Bilirubin, Direct 0.4 mg/dL (0.1-0.3); Protein, Total 5.2 g/dL (5.8-8.1)
[2021-05-27] MEDS: Dexamethasone 4 MG TAB PO SCH (10:31)
[2021-05-27] MEDS: Ascorbic Acid 500 mg Chewable Tablet PO SCH (10:33)
[2021-05-27] MEDS: Cholecalciferol 1,000 UNITS (25 MCG) TAB PO SCH (10:35)
[2021-05-27] MEDS: Enoxaparin Sodium 40 MG/0.4 ML SYRINGE SC SCH (10:36)
[2021-05-27] MEDS: Docusate 100 MG CAP PO SCH ×2 (10:36→20:23)
[2021-05-27] MEDS: Gabapentin 100 MG CAP PO SCH ×3 (10:37→20:23)
[2021-05-27] MEDS: Hydrochlorothiazide 25 MG TAB PO SCH (10:38)
[2021-05-27] MEDS: Losartan 25 MG TAB PO SCH (10:39)
[2021-05-27] MEDS: Polyethylene Glycol 3350 17 GM Packet PO SCH (10:40)
[2021-05-27] MEDS: Thiamine 100 MG TAB PO SCH (10:41)
[2021-05-27] MEDS: BARICITINIB 2 MG TAB PO SCH (14:24)
[2021-05-28] MEDS: Albuterol 200 PUFF (6.7GM INHALER) INH SCH ×4 (02:58→16:34)
[2021-05-28] MEDS: Acetaminophen 325 MG TAB PO PRN (03:26)
[2021-05-28] MEDS: Mometasone 200 MCG/Formoterol 5 MCG 120 PUFF INHALER INH SCH (05:32)
[2021-05-28] MEDS: Dexamethasone 4 MG TAB PO SCH (10:25)
[2021-05-28] MEDS: Ascorbic Acid 500 mg Chewable Tablet PO SCH (10:26)
[2021-05-28] MEDS: Cholecalciferol 1,000 UNITS (25 MCG) TAB PO SCH (10:26)
[2021-05-28] MEDS: Hydrochlorothiazide 25 MG TAB PO SCH (10:27)
[2021-05-28] MEDS: Enoxaparin Sodium 40 MG/0.4 ML SYRINGE SC SCH (10:27)
[2021-05-28] MEDS: Gabapentin 100 MG CAP PO SCH ×2 (10:27→16:33)
[2021-05-28] MEDS: Docusate 100 MG CAP PO SCH (10:27)
[2021-05-28] MEDS: Polyethylene Glycol 3350 17 GM Packet PO SCH (10:28)
[2021-05-28] MEDS: Losartan 25 MG TAB PO SCH (10:28)
[2021-05-28] MEDS: Thiamine 100 MG TAB PO SCH (10:29)
[2021-05-28 16:26] VITALS: BP 128/57; TEMP 98.1
[2021-05-28] MEDS: BARICITINIB 2 MG TAB PO SCH (16:32)
== END 2021-05-28 17:08 | disposition home or self-care (01) | DRG 177 ==
LOC: ERS 14:44 → ERHOLD 20:50 → 2SW 05-15 09:20
PROVIDERS: ADMIT Student in an Organized Health Care Education/Training Program; ATTEND Internal Medicine
PROC: 8E0ZXY6 Isolation (ICD-10-PCS; principal; 2021-05-14)
PROC: 3E0333Z Introduction of Anti-inflammatory into Peripheral Vein, Percutaneous Approach (ICD-10-PCS; 2021-05-15)
PROC: XW0DXM6 Introduction of Baricitinib into Mouth and Pharynx, External Approach, New Technology Group 6 (ICD-10-PCS; 2021-05-16)
DX: U07.1 COVID-19 (principal); J12.82 Pneumonia due to coronavirus disease 2019; J96.01 Acute respiratory failure with hypoxia; E87.1 Hypo-osmolality and hyponatremia; I49.5 Sick sinus syndrome; I10 Essential (primary) hypertension; Z86.73 Personal history of transient ischemic attack (TIA), and cerebral infarction without residual deficits; Z79.82 Long term (current) use of aspirin; Z79.899 Other long term (current) drug therapy; Z90.710 Acquired absence of both cervix and uterus
CPT/HCPCS: 36415; 71045; 71275; 80048; 80053; 80076; 83605; 83735; 83880; 84484; 85025; 85379; 86140; 87040; 93005; 96365; 96367; 96368; 96375; J0456; J0696; J1100; J1200; J1650; J2930; J3475; J8540; Q0163; Q9967